=== PATIENT | female | born 1990 | race Caucasian/White ===

== ENCOUNTER 2018-01-07 16:15 | Inpatient (IN) | payer MEDICAID ==
[2018-01-07] VITALS (20 sets, daily range): BP systolic 93–168; BP diastolic 59–104; PULSE 63–117; TEMP 97.9–98.3
[~2018-01-07] VITALS: Ht 165.1 cm; Wt 75.0 kg
[~2018-01-07 16:15] MED LIST: ALBUTEROL0.09 MG/A1 IH; AMOXICILLIN 50500 MG PO; AMOXICILLIN 8751 TAB PO; BIRTH CONTROL; CEFTIN500 MG PO; CEPHALEXIN500 M1 PO; FLEXERIL10 MG PO; FOLIC ACID1 MG PO; IBU600 MG PO; LEXAPRO 5MG5 MG; LORTAB 5/500 501 TAB PO; MACROBID 1100 MG/CAP PO; MOTRIN 600600 MG/TAB PO; NAPROSYN500 MG PO; NO HOME MEDICATIONS; NORCO 325 MG-51 TAB PO; PERCOCET 325 MG1 TA2 PO; PHENERGAN 25 TA25 MG PO; PREDNISONE10 MG PO; PREDNISONE20 MG PO; PRENATAL1 TA1 PO; PRENATAL1 TA2 PO; SENOKOT S 50 MG1 TAB PO; VENTOLIN0.09 MG IH; ZITHROMAX Z PA250 MG PO; ZOFRAN ODT8 MG PO
[2018-01-07 17:16] LABS: BASO # 0.1 (0.0-0.2); BASO % 0.6 % (0.0-2.0); EOS # 0.2 (0.0-0.7); EOS % 1.4 % (0-4.0); GRAN # 11.7 (1.4-6.5); GRAN % 73.2 % (42.2-75.2); HEMATOCRIT 43.5 % (37.0-47.0); HEMOGLOBIN 14.3 g/dl (12.5-16.0); LYMPH # 3.1 (1.2-3.4); LYMPH % 19.5 % (20.0-51.0); MEAN CELL VOLUME 83 fl (80.0-100.0); MEAN CORPUSCULAR HEMOGLOBIN 27 pg (27.0-31.0); MEAN CORPUSCULAR HGB CONC 33 g/dl (33.0-37.0); MEAN PLATELET VOLUME 9.6 fl (7.4-10.4); MONO # 0.8 (0.1-0.6); PLATELET COUNT 394 K/mm3 (130-400); RED BLOOD COUNT 5.27 M/mm3 (4.10-5.30); REDCELL DISTRIBUTION WIDTH-CV 14.7 % (11.5-14.5)
[2018-01-07 17:21] LABS: TRICYCLIC ANTIDEPRESS URINE NEGATIVE
[2018-01-08 01:30] VITALS: BP 124/62; PULSE 82; TEMP 98.6
[2018-01-08 05:30] VITALS: BP 107/65; PULSE 64; TEMP 98.1
[2018-01-08 07:50] VITALS: BP 127/72; PULSE 64; TEMP 98.3
[2018-01-08] MEDS ORDERED: PERCOCET 325 MG1 TA2 PO (08:59)
[2018-01-08] MEDS ORDERED: IBU800 M1 PO (08:59)
[2018-01-08 11:15] VITALS: BP 109/64; PULSE 65; TEMP 97.5
[2018-01-08 15:45] VITALS: BP 117/73; PULSE 57; TEMP 98
[2018-01-08 20:40] VITALS: BP 138/88; PULSE 66; TEMP 97.9
[2018-01-09] MEDS ORDERED: CELEXA 20MG20 MG/TAB PO (08:18)
[2018-01-09 09:00] VITALS: BP 105/66; PULSE 74; TEMP 97.7
[2018-01-09 16:00] VITALS: BP 114/63; PULSE 52; TEMP 97.8
[2018-01-09 21:00] VITALS: BP 121/79; PULSE 70; TEMP 97.9
[2018-01-10 09:23] VITALS: BP 124/66; PULSE 59; TEMP 98.2
[2018-01-10 16:35] VITALS: BP 130/73; PULSE 66; TEMP 98.6
[2018-01-10 19:10] VITALS: BP 131/65; PULSE 59; TEMP 98.2
== END 2018-01-10 23:20 | disposition home or self-care (01) | DRG 765 ==
LOC: OB 16:15 → LDR 16:15 → OB 19:00 → LDR 01-08 17:02 → OB 01-10 23:20
PROVIDERS: Obstetrics & Gynecology; Student in an Organized Health Care Education/Training Program
PROC: 10D00Z1 Extraction of Products of Conception, Low, Open Approach (ICD-10-PCS; principal; 2018-01-07)
PROC: 0UT70ZZ Resection of Bilateral Fallopian Tubes, Open Approach (ICD-10-PCS; 2018-01-07)
PROC: 0UB10ZZ Excision of Left Ovary, Open Approach (ICD-10-PCS; 2018-01-07)
DX: O34.219 Maternal care for unspecified type scar from previous cesarean delivery (principal); O99.323 Drug use complicating pregnancy, third trimester; Z3A.39 39 weeks gestation of pregnancy; Z37.0 Single live birth; O34.83 Maternal care for other abnormalities of pelvic organs, third trimester; O99.334 Smoking (tobacco) complicating childbirth; F17.210 Nicotine dependence, cigarettes, uncomplicated; F12.10 Cannabis abuse, uncomplicated; F11.10 Opioid abuse, uncomplicated; F15.90 Other stimulant use, unspecified, uncomplicated; Z40.03 Encounter for prophylactic removal of fallopian tube(s)
CPT/HCPCS: J0171; J0690; J1885; J2250; J2270; J2370; J2405; J2590; J2765; J3010; J7120

== ENCOUNTER 2021-08-01 00:11 | Emergency (ER) | payer SELFPAY ==
[~2021-08-01] VITALS: Ht 165.1 cm; Wt 84.1 kg
[~2021-08-01 00:11] MED LIST changes: +CELEXA 20MG20 MG/TAB PO; +IBU800 M1 PO
[2021-08-01 00:20] VITALS: TEMP 98.7
[2021-08-01 00:44] LABS: COLLECTION METHOD CLEAN CATCH
[2021-08-01 00:47] LABS: BASO # 0.2 K/mm3 (0.0-0.2); BASO % 1.4 % (0.0-2.0); EOS # 0.5 K/mm3 (0.0-0.7); EOS % 4.5 % (0-4.0); GRAN # 6.7 K/mm3 (1.4-6.5); GRAN % 57.5 % (42.2-75.2); HEMATOCRIT 44.7 % (37.0-47.0); HEMOGLOBIN 14.1 g/dl (12.5-16.0); LYMPH # 3.4 K/mm3 (1.2-3.4); MEAN CELL VOLUME 83 fl (80.0-100.0); MEAN CORPUSCULAR HEMOGLOBIN 26 pg (27.0-31.0); MEAN CORPUSCULAR HGB CONC 32 g/dl (33.0-37.0); MEAN PLATELET VOLUME 9.3 fl (7.4-10.4); MONO # 0.9 K/mm3 (0.1-0.6); MONO % 7.3 % (1.7-9.3); PLATELET COUNT 336 K/mm3 (130-400); RED BLOOD COUNT 5.42 M/mm3 (4.10-5.30); REDCELL DISTRIBUTION WIDTH-CV 15.3 % (11.5-14.5)
[2021-08-01 00:55] LABS: MUCOUS Present /lpf; PH 5 (5-8); URINE APPEARANCE Hazy; URINE BACTERIA Many /hpf; URINE BILIRUBIN Negative (NEGATIVE); URINE BLOOD Negative (NEGATIVE); URINE COLOR Yellow; URINE GLUCOSE Negative (NEGATIVE); URINE KETONE Negative (NEGATIVE); URINE LEUKOCYTE ESTERASE 2+ (NEGATIVE); URINE NITRATE Positive (NEGATIVE); URINE PROTEIN(semi-quant) 1+ (NEGATIVE); URINE UROBILINOGEN Negative (NEGATIVE)
[2021-08-01 01:03] LABS: ALBUMIN 4.5 gm/dL (3.5-5.0); BILIRUBIN,TOTAL 0.3 mg/dL (0.2-1.2); C-REACTIVE PROTEIN 0.04 mg/dL (0.00-0.50); CALCIUM 9.7 mg/dL (8.4-10.2); CREATININE, serum 0.84 mg/dL (0.57-1.11); POTASSIUM 3.4 mmol/L (3.5-4.5); TOTAL PROTEIN 8.1 gm/dL (6.2-8.1)
[2021-08-01] MEDS ORDERED: CEFTIN 250250 MG/TAB PO (01:39)
[2021-08-01 01:45] VITALS: BP 114/78; PULSE 90
== END 2021-08-01 01:45 | disposition home or self-care (01) ==
LOC: COL.ER 00:11
PROVIDERS: Emergency Medicine
DX: N39.0 Urinary tract infection, site not specified (principal); N92.6 Irregular menstruation, unspecified; F17.210 Nicotine dependence, cigarettes, uncomplicated
CPT/HCPCS: J7030

== ENCOUNTER 2021-08-23 16:38 | Emergency (ER) | payer SELFPAY ==
[~2021-08-23] VITALS: Ht 165.1 cm; Wt 72.7 kg
[~2021-08-23 16:38] MED LIST changes: +CEFTIN 250250 MG/TAB PO
[2021-08-23 17:13] VITALS: TEMP 98.1
[2021-08-23 18:00] VITALS: BP 131/90; PULSE 91
[2021-08-23 18:03] LABS: COLLECTION METHOD CLEAN CATCH
[2021-08-23 18:40] LABS: MUCOUS Present (NOT PRESENT); PH 5 (5-8); URINE APPEARANCE Hazy (CLEAR/HAZY); URINE BACTERIA Rare (NONE SEEN); URINE BILIRUBIN Negative (NEGATIVE); URINE BLOOD Negative (NEGATIVE); URINE COLOR Yellow (YELLOW); URINE GLUCOSE Negative (NEGATIVE); URINE KETONE Negative (NEGATIVE); URINE LEUKOCYTE ESTERASE Negative (NEGATIVE); URINE NITRATE Positive (NEGATIVE); URINE PROTEIN(semi-quant) Negative (NEGATIVE); URINE RBC 0-2 /hpf (0-2); URINE UROBILINOGEN Negative (NEGATIVE)
== END 2021-08-23 18:00 | disposition home or self-care (01) ==
LOC: COL.ER 16:38
PROVIDERS: Nurse Practitioner
DX: R10.31 Right lower quadrant pain (principal); F17.210 Nicotine dependence, cigarettes, uncomplicated; Z32.02 Encounter for pregnancy test, result negative

== ENCOUNTER 2022-11-21 14:24 | Day surgery (SDC) | payer SELFPAY ==
[~2022-11-21] VITALS: Ht 165.1 cm; Wt 70.1 kg
[2022-11-21 15:13] VITALS: BP 119/66; PULSE 100; TEMP 97.3
[2022-11-21 15:25] LABS: TRICYCLIC ANTIDEPRESS URINE NEGATIVE
--- NOTE | 2022-11-21 15:35 | NUR ---
Dr. Crum is at the patient's bedside to discuss the findings of the urine drug screen and cancel her surgery today.
--- NOTE | 2022-11-21 16:12 | NUR ---
1555 PT DRESSED, ARM IN SLING, HAS SPOKEN TO DR ANTHONY, SURGERY HAS BEEN CANCELLED DUE TO UTOX. A&O, NAD, STEADY GAIT, DECLINES NEED OR ASSISTANCE. AMBULATED INDEPEDENTLY WITH ALL BELONGINGS TO EXIT. ASKING FOR STAFF NOT TO CALL HER RIDE -SHE WILL ARRANGE TRANSPORT HOME.
--- NOTE | 2022-11-21 16:17 | NUR ---
1555 RN NOTE BY FLORIDALMA LI, NOT RN IT WAS TIMESTAMPED UNDER
== END 2022-11-21 15:55 | disposition home or self-care (01) ==
LOC: SDCO 14:24
PROVIDERS: Nurse Anesthetist, Certified Registered
DX: S52.572A Other intraarticular fracture of lower end of left radius, initial encounter for closed fracture (principal); X58.XXXA Exposure to other specified factors, initial encounter; Y93.9 Activity, unspecified; Z53.9 Procedure and treatment not carried out, unspecified reason